=== PATIENT | male | born 1950 | race Caucasian/White ===

== ENCOUNTER → 2020-04-03 17:44 | Outpatient (CLI) | payer MEDICARE, SELFPAY ==
[2018-05-11 18:46] VITALS: BMI 25.9
== END ==
PROVIDERS: PCP Family Medicine; Referring Provider Family Medicine; Visit Provider Family Medicine
DX: Z11.59 Encounter for screening for other viral diseases (principal)
CPT/HCPCS: 87635; C9803; U0003